=== PATIENT | male | born 1965 | race Caucasian/White ===

== ENCOUNTER → 2016-11-16 | Outpatient (CLI) | payer BC, OTHER ==
[~2016-11-16] VITALS: Ht 175.3 cm; Wt 105.6 kg
[~2016-11-16] MED LIST: ALLOPURINOL 30300 M2 PO; CIALIS20 MG PO; CLONIDINE0.1 PO; HYDROCODONE-AP1 EA11 PO; HYDROCODONE-APA1 TA1 PO; LIDODERM 5%1 PATCH TOP; LISINOPRIL20 MG PO; NORCO 5-325 TA1 EACH PO; NUCYNTA100 MG PO
--- NOTE | ~2016-11-16 | HPC ---
[facility] [address] [place] [address] PAIN MANAGEMENT CONSULTATION Name: KESHA GRUBBS Abimbola [facility] #: [facility] [id number] Admission: 11/16/16 Attend Phys: Sumit Quevedo DO Discharge: Date of : 69 Report #: [id number] THIS REPORT FOR: //name// CC: Kesha Quevedo DATE OF SERVICE: 11/16/2016 CHIEF COMPLAINT: Neck pain, left upper extremity pain with paresthesias. HISTORY OF PRESENT ILLNESS: As you know, the patient is a 51-year-old male, returning in followup visit requesting refills of medications. He feels medications are working beneficially. He is in the process of possibly changing careers and at this time wishes to make no changes in his therapy. Once he begins his new potential occupation, he is considering more aggressive treatment such as epidural injections, even surgical options. At present, he feels the medications are providing analgesic benefit enough that he is able to continue his current position. He wishes the medications to be refilled for 3 months. ALLERGIES: No known drug allergies. CURRENT MEDICATIONS: Nucynta 100 mg twice a day, hydrocodone 7.5/325 one tab every 4-1/2 hours p.r.n. for pain, Cialis 20 mg as needed, lisinopril 20 mg twice a day, clonidine 0.1 mg twice a day. SOCIAL HISTORY: The patient denies current tobacco use. Denies IV or illicit drug use. 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 He is unaccompanied today. IMAGING: No new imaging available. PHYSICAL EXAMINATION: VITAL SIGNS: Blood pressure 145/91, pulse 85, respiratory rate 16, unlabored. The patient is 98% on room air. Height 5 feet 9 inches tall, weight 232.8 pounds, BMI calculated 34.4. GENERAL: Well-developed, well-nourished, well-hydrated 51-year-old male, appearing stated age. Pain is rated around 2/10. HEENT: Normocephalic, atraumatic. Pupils are equal, round, reactive to light. EXTREMITIES: Show no clubbing, no cyanosis, no edema. MUSCULOSKELETAL: Upper extremity strength equal and symmetrical 5/5. There is some pain generated with shoulder abduction on the left when compared to the right. Spurling's test positive left, negative right. Muscle bulk and tone equal and symmetrical in upper extremities. ASSESSMENT: 1. Cervical radiculopathy. [address] [address] PAIN MANAGEMENT CONSULTATION Name: KESHA GRUBBS Room #: REG [facility]#: [id number] Admission: 11/16/16 Attend Phys: Sumit Quevedo DO Discharge: Date of : 69 Report #: [id number] 2. Cervical spondylosis with radiculopathy. 3. Neural foraminal stenosis. 4. Chronic intractable pain. PLAN: 1. The patient has returned today in followup visit requesting refills of medications. He feels medications are working beneficially for pain control. The patient has been appropriate with use of medications and he has been on time with requesting refills. He has not called for adjustments in his medications. Overall, the patient states he is doing very well, wishing to continue the medication as he continues to work at the current position. He is considering options of changing his medication or even becoming more aggressive with treatment depending on his work levels. At present, he feels he is doing very well and wishes refills of the medication for 3 months. 2. The patient was provided prescription of Nucynta 100 mg dose 1 tab p.o. b.i.d., #60, releases of today, 4 weeks from today, 8 weeks from today, 3 months' worth of medication. 3. The patient was provided a prescription of [place] 7.5/325 one tab every 4-1/2 hours p.r.n. for pain, given #150, releases of today, 4 weeks from today, 8 weeks from today. 4. The patient will return to our clinic in 3 months or earlier if interventional treatments are requested. We reviewed the fact that opiate medications are being used to provide analgesia adequate to support activities of daily living, not attempting to achieve a specific pain score on the 0-10 Visual Analog Scale. The current opiate medications are providing sufficient analgesia to allow the patient to participate in activities of daily living. The patient is not exhibiting any aberrant behavior suggestive of drug diversion. The patient is not having any adverse reactions to medications. The patient is not suffering from daytime somnolence or mental acuity changes. The patient is managing opiate-induced constipation with appropriate hqjr-htu-[id number] agents and dietary considerations. The patient was counseled on concern for caution with operating a motor vehicle while using opiate medications. A physical exam was performed and the patient's functional status was evaluated. All patients with back pain were advised against the bed rest greater than 4 days and were advised to return to normal activities. Pain score assessment was noted and the treatment plan was reviewed with the patient. All current medications, both prescribed and OTC were reviewed and reconciled on the electronic medical record. Tobacco screening was accomplished and smoking cessation was advised when indicated. BMI was noted and diet/exercise modification was recommended for all patients following outside normal parameters. I reviewed with the patient today their responsibilities to safeguard [facility] [address] [place] [address] PAIN MANAGEMENT CONSULTATION Name: KESHA GRUBBS Abimbola Room #: REG [facility]#: [id number] Admission: 11/16/16 Attend Phys: Sumit Quevedo DO Discharge: Date of : 69 Report #: [id number] prescription medications, reviewed their responsibility to utilize medications only as prescribed by the physician. They are to seek and receive pain medications only from 1 physician group ( [facility]). They are to use 1 pharmacy and keep the clinic informed if they change pharmacies. Their responsibilities include making followup visits in a timely fashion and to avoid abrupt discontinuation of medication usage. Their responsibilities further include bringing their medications (bottles from the pharmacy with residual pills) to the visit for possible confirmation of pill counts and the patient understands it is their responsibility to submit to random drug screens to ensure both that the medications prescribed are present, and that no other controlled substances are present. All prescriptions provided today were generated electronically. <ELECTRONICALLY SIGNED> By: Sumit Quevedo DO 11/29/16 0808 0723 [id number] uSmit Quevedo DO /nt
[2016-11-16 13:08] VITALS: BP 145/91
== END | disposition home or self-care (01) ==
LOC: PAIN 07:16
DX: M47.22 Other spondylosis with radiculopathy, cervical region (principal); M48.02 Spinal stenosis, cervical region; G89.29 Other chronic pain; F17.200 Nicotine dependence, unspecified, uncomplicated

== ENCOUNTER → 2017-03-15 | Outpatient (CLI) | payer BC, OTHER ==
[~2017-03-15] VITALS: Ht 175.3 cm; Wt 105.5 kg
--- NOTE | ~2017-03-15 | HPC ---
[facility] [address] [place] [address] PAIN MANAGEMENT CONSULTATION Name: KESHA GRUBBS Room #: REG [facility].#: [id number] Admission: 03/15/17 Attend Phys: Sumit Quevedo DO Discharge: Date of : 69 Report #: [id number] THIS REPORT FOR: //name// CC: Kesha Quevedo DATE OF SERVICE: 03/15/2017 REFERRING PHYSICIAN: Kesha Mcconnell MD CHIEF COMPLAINT: Neck pain, left upper extremity pain and paresthesias. HISTORY OF PRESENT ILLNESS: As you know, the patient is a 51-year-old male, returning in followup visit for medication management. He feels medications are working beneficially. He continues to experience neck pain, left upper extremity pain for which he places pain score 2/10. He states stress, looking up, looking down, sitting for any length of time appears to exacerbate symptoms. He has also noted increasing neuropathic symptoms upon arising in the morning after sleep. Medications, repositioning appears to improve pain. He has returned today in followup visit requesting medication management and possible addition of neuropathic medications for evening hours. ALLERGIES: No known drug allergies. CURRENT MEDICATIONS: Nucynta 100 mg b.i.d., hydrocodone 7.5/325 one tab p.o. q. 4-1/2 hours p.r.n. for pain, Cialis 20 mg p.r.n., lisinopril 20 mg twice a day, clonidine 0.1 mg twice a day. SOCIAL HISTORY: The patient denies current tobacco use. Denies IV or illicit drug use. 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 IMAGING: No new imaging available. PHYSICAL EXAMINATION: VITAL SIGNS: Blood pressure 114/84, pulse 81, respiratory rate 14, unlabored. The patient is 95% on room air, current height is 5 feet 9 inches tall, weight 232.6 pounds, BMI calculated 34.3. GENERAL: Well-developed, well-nourished, well-hydrated 51-year-old male appearing his stated age. Pain is rated at 2/10. HEENT: Normocephalic, atraumatic. Pupils equal, round, reactive to light. Speech is fluent. EXTREMITIES: Show no clubbing, no cyanosis, no edema. MUSCULOSKELETAL: Upper extremity strength equal and symmetrical 5/5, intact to light touch from C1 through T1 dermatomes. Spurling's test positive left, [address] [address] PAIN MANAGEMENT CONSULTATION Name: KESHA GRUBBS Room #: REG [facility]#: [id number] Admission: 03/15/17 Attend Phys: Sumit Quevedo DO Discharge: Date of : 69 Report #: [id number] negative right. ASSESSMENT: 1. Cervical radiculopathy. 2. Cervical spondylosis with radicular symptoms. 3. Neural foraminal stenosis of the cervical spine. 4. Chronic intractable pain. PLAN: 1. The patient returns today in followup visit requesting refill on medications. He does indicate today he has been having some difficulty with arising in the morning hours with neuropathic symptoms involving the left upper extremity greater than right, but numbness and tingling will last for at least a half hour to 45 minutes. He wishes to discuss possible changes in medication therapy. 2. The patient will be started on Lyrica to address this neuropathic symptom. We will start the patient on 75 mg dose at night, continue this for 7 nights, if no improvement in the neuropathic symptoms then increase to 150 mg dose. I have given him samples of Lyrica today. He will trial the samples, if they are effective, he will contact our clinic and we will provide a full prescription to his local pharmacy. He was given samples of Lyrica today to initiate this titration, he is to watch for side effects such as somnolence, decrease in mental acuity, disorientation and confusion. He notes any side effects, contact our clinic. 3. The patient will be continued on Nucynta 100 mg dose 1 tab p.o. b.i.d., I have given the patient #60, releases of today, 4 weeks from today, 8 weeks from today as this is working beneficially for pain control in the daytime hours. He was given this medication to continue therapy. 4. The patient was provided a prescription of hydrocodone 7.5/325 one tab p.o. q. 4-1/2 hours p.r.n. for pain, I have given the patient #150, releases of today, 4 weeks from today, 8 weeks from today, 3 months' worth of medication. I have advised the patient to take this medication as directed. He is not to take more than 5 tablets per day. He is only to take the medication when his pain is intolerable, not to rely on the medication prophylactically. 5. We will see the patient back in followup visit 3 months from today or earlier if he wishes to undergo interventional treatment such as cervical epidural injection or to receive referrals to neurosurgery. We will also discuss with the patient the Lyrica if it is effective he can contact our clinic and we will call up prescription into his local pharmacy. <ELECTRONICALLY SIGNED> By: Sumit Quevedo DO 03/16/17 0937 [id number] Sumit Quevedo DO /jada
[2017-03-15 08:15] VITALS: BP 114/84
== END ==
LOC: PAIN 06:52
DX: M47.12 Other spondylosis with myelopathy, cervical region (principal); M48.02 Spinal stenosis, cervical region; G89.29 Other chronic pain; I10 Essential (primary) hypertension; F17.210 Nicotine dependence, cigarettes, uncomplicated

== ENCOUNTER → 2017-06-29 | Outpatient (CLI) | payer BC, OTHER ==
[~2017-06-29] VITALS: Ht 175.3 cm; Wt 105.1 kg
[~2017-06-29] MED LIST changes: +LYRICA 75 MG CA75 MG PO
--- NOTE | ~2017-06-29 | HPC ---
[facility] [place] [address] PAIN MANAGEMENT CONSULTATION Name: KESHA GRUBBS [facility] [id number] Admission: 06/29/17 Attend Phys: Sumit Quevedo DO Discharge: Date of : 69 Report #: [id number] THIS REPORT FOR: //name// CC: KESHA Quevedo DATE OF SERVICE: 06/29/2017 CHIEF COMPLAINT: Neck pain, left upper extremity pain and paresthesias. HISTORY OF PRESENT ILLNESS: As you know, the patient is a 52-year-old male, returning in followup visit with ongoing neck pain, left upper extremity pain with paresthesias. As you are aware, the patient suffers from cervical radiculopathy secondary to the displacement of a cervical intervertebral disk and cervical spondylosis leading to foraminal stenosis. The patient continues to experience pain at a level of 2/10. We initiated the Lyrica therapy at last visit and this improved the patient's symptoms significantly. He has returned today in followup visit for medication management. He does need to adjust the timing of his Lyrica to decrease the side effects of somnolence, decreased mental acuity, disorientation he reported in the daytime hours. He returns today with no new injury, no new trauma; for refill of medications. ALLERGIES: No known drug allergies. CURRENT MEDICATIONS: Nucynta 100 mg b.i.d., hydrocodone 7.5/325 one tab every 4-1/2 hours p.r.n. for pain, Cialis 20 mg p.r.n., lisinopril 20 mg twice a day, clonidine 0.1 mg twice a day. SOCIAL HISTORY: The patient denies current tobacco use. Denies IV or illicit drug use. He denies alcohol use. 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 IMAGING: No new imaging available. PHYSICAL EXAMINATION: VITAL SIGNS: Blood pressure 153/104, pulse 76, respiratory rate 20 unlabored. The patient is 98% on room air. Height 5 feet 9 inches tall, weight 231.8 pounds, BMI calculated 34.2. GENERAL: Well-developed, well-nourished, well-hydrated exogenously obese 52-year-old male. He appears his stated age, placing current pain score at 2/10. HEENT: Normocephalic, atraumatic. Pupils equal, round, reactive to light. Extraocular muscles are intact. Speech fluent. EXTREMITIES: Show no clubbing, no cyanosis, no edema. MUSCULOSKELETAL: Upper extremity strength appears equal and symmetrical again [address] [address] PAIN MANAGEMENT CONSULTATION Name: KESHA GRUBBS Abimbola Room #: REG [facility]#: [id number] Admission: 06/29/17 Attend Phys: Sumit Quevedo DO Discharge: Date of : 69 Report #: [id number] today 5/5, intact to light touch from C1 through T1 dermatomes. Spurling's test positive left, negative right. Muscle bulk and tone equal and symmetrical in upper extremities. There is mild restriction of motion of the cervical spine, leftward lateral flexion intensifies neck pain. ASSESSMENT: 1. Cervical radiculopathy. 2. Cervical spondylosis with radicular symptoms. 3. Neural foraminal stenosis of the cervical spine. 4. Chronic intractable pain. 5. Essential hypertension. PLAN: 1. The patient has returned today in followup visit for medication management. The patient feels medications are working beneficially for pain control. He is having no side effects to medication at this time and he does feel that they are beneficial. He states he has return to work of late and has noted that the medications have been quite beneficial in helping pain control. He is having some side effects with the Lyrica and indicates sensation of hangover sensation in the morning hours and needs to make adjustments in this therapy. 2. The patient was provided a prescription of Lyrica 75 mg dose 2 tabs p.o. at bedtime. I have recommended the patient to take the medication at night, he should take it approximately 3 hours before bedtime, this would reduce the "hangover effects" that the patient experiences on a daily basis. This will allow the patient to continue this neuropathic pain medication and decrease the potential side effects. He was provided a refill prescription of Lyrica today 75 mg 2 tabs p.o. at bedtime, #60, two refills. 3. The patient was provided a prescription of hydrocodone/acetaminophen 7.5/325 one tab every 4-1/2 hours p.r.n. for pain, I have given the patient #150, releases of today, 4 weeks from today, 8 weeks from today. I did advise the patient that we will need to be reducing this medication at our next visit to comply with CDC guidelines of 90 morphine equivalents per day. 4. The patient was provided a prescription of Nucynta ER 100 mg dose, 1 tab p.o. b.i.d., I have given the patient #60, releases of today, 4 weeks from today, 8 weeks from today, 3 months' worth of medication. This will be the medication we rely on for baseline pain control. This will remain as our main treatment option, this in conjunction with the Lyrica indicated above. We will begin weaning the hydrocodone as quickly as possible. 5. The patient's blood pressure was noted to be elevated today, pressure today at our clinic was 153/104. At previous evaluation, the patient's blood pressure was 114/84. I strongly suggest the patient return to see his PCP in regards to adjustments in his antihypertensive medications. The patient indicates he understands and will make an appointment with his PCP to adjust his medications further. [address] [address] PAIN MANAGEMENT CONSULTATION Name: ROMIEKESHA Abimbola [facility]: [facility] [id number] Admission: 06/29/17 Attend Phys: Sumit Quevedo DO Discharge: Date of : 69 Report #: [id number] 6. We will see the patient back in followup visit 3 months from today for medication management. By: 0928 [id number] Sumit Quevedo DO /jada
[2017-06-29 08:22] VITALS: BP 153/104
== END | disposition home or self-care (01) ==
LOC: PAIN 07:19
DX: Z76.0 Encounter for issue of repeat prescription (principal); M47.22 Other spondylosis with radiculopathy, cervical region; M48.02 Spinal stenosis, cervical region; G89.29 Other chronic pain; I10 Essential (primary) hypertension; F17.200 Nicotine dependence, unspecified, uncomplicated; Z79.899 Other long term (current) drug therapy

== ENCOUNTER → 2017-11-25 | Outpatient (CLI) | payer BC, OTHER ==
[~2017-11-25] VITALS: Ht 175.3 cm; Wt 99.5 kg
[~2017-11-25] MED LIST changes: +NORCO 7.5-3251 EACH PO; +STOOL SOFTENER100 MG PO
--- NOTE | ~2017-11-25 | HPC ---
[facility] [address] [place] [address] PAIN MANAGEMENT CONSULTATION Name: KESHA GRUBBS Abimbola Room #: REG [facility]#: [id number] Admission: 11/25/17 Attend Phys: Sonido Quevedo DO Discharge: Date of : 69 Report #: [id number] THIS REPORT FOR: //name// CC: Kesha Quevedo The patient is a 52-year-old gentleman, last seen 06/29/[address] Sumit Quevedo, being treated for cervical radiculopathy, cervical spondylosis, requiring high risk complex medication management. Returns to pain clinic today noting pain continues in neck and left upper extremity. He rates his pain a 2 on VAS. He works at [employer], fairly physical job. Takes hydrocodone 4 a day along with Nucynta 150 mg at bedtime. Pain is primarily neck, right arm, and knee. Notes pain is exacerbated with cervical range of motion, specifically looking up. Physical and emotional stress exacerbates pain as well. He gets relief with repositioning and medication and "distraction." PHYSICAL EXAMINATION: Shows 52-year-old gentleman, BMI is 30.2 kilograms per meter squared. Blood pressure 125/94, pulse 76, respirations 16. Cervical range of motion is full. Upper extremity strength is preserved. The patient is actually fairly robust 5/5 to all muscle groups tested in the upper extremity. Gait is tandem. Lower extremity strength is preserved. We reviewed the fact that opiate medications are being used to provide analgesia adequate to support activities of daily living, not attempting to achieve a specific pain score on the 0-10 Visual Analog Scale. The current opiate medications are providing sufficient analgesia to allow the patient to participate in activities of daily living. The patient is not exhibiting any aberrant behavior suggestive of drug diversion. The patient is not having any adverse reactions to medications. The patient is not suffering from daytime somnolence or mental acuity changes. The patient is managing opiate-induced constipation with appropriate [id number] agents and dietary considerations. The patient was counseled on concern for caution with operating a motor vehicle while using opiate medications. A physical exam was performed and the patient's functional status was evaluated. All patients with back pain were advised against the bed rest greater than 4 days and were advised to return to normal activities. Pain score assessment was noted and the treatment plan was reviewed with the patient. All current medications, both prescribed and OTC were reviewed and reconciled on the electronic medical record. Tobacco screening was accomplished and smoking cessation was advised when indicated. BMI was noted and diet/exercise modification was recommended for all patients following outside normal parameters. I reviewed with the patient today their responsibilities to safeguard prescription medications, reviewed their responsibility to utilize medications only as prescribed by the physician. They are to seek and receive pain [address] [address] PAIN MANAGEMENT CONSULTATION Name: KESHA GRUBBS Abimbola Room #: REG [facility]#: [id number] Admission: 11/25/17 Attend Phys: Sonido Quevedo DO Discharge: Date of : 69 Report #: [id number] medications only from 1 physician group ( [facility]). They are to use 1 pharmacy and keep the clinic informed if they change pharmacies. Their responsibilities include making followup visits in a timely fashion and to avoid abrupt discontinuation of medication usage. Their responsibilities further include bringing their medications (bottles from the pharmacy with residual pills) to the visit for possible confirmation of pill counts and the patient understands it is their responsibility to submit to random drug screens to ensure both that the medications prescribed are present, and that no other controlled substances are present. All prescriptions provided today were generated electronically. ASSESSMENT: Symptomatic lumbar radiculopathy, component of axial back pain, cervical radiculopathy by history requiring high risk complex medication management. RECOMMENDATIONS: We will check buccal drug swab today, no aberrant behavior suggestive of drug diversion, simply complying with opiate consent to treat contract. The patient has been treated in our clinic with opiate analgesics since 07/2015. We will continue current medication unchanged, hydrocodone 7.5/325 one tablet 4-5 times a day, limit 150 tablets for 30 days and Nucynta 150 mg b.i.d. and Lyrica 75 mg b.i.d. Discharged in good and stable condition after prolonged visit was spent reviewing therapeutic options, discussing risks, benefits of opiate analgesics for chronic pain, reviewing opiate consent to treat contract and obtaining buccal swab. Greater than 50% of time spent counseling the patient. <ELECTRONICALLY SIGNED> By: Sonido Quevedo DO 11/28/17 0715 1209 [id number] Sonido Quevedo DO /nt
[2017-11-25 12:08] VITALS: BP 125/94
== END ==
LOC: PAIN 07:04
DX: M54.12 Radiculopathy, cervical region (principal); M47.892 Other spondylosis, cervical region; M54.9 Dorsalgia, unspecified; Z79.899 Other long term (current) drug therapy

== ENCOUNTER → 2018-03-29 | Outpatient (CLI) | payer BC, OTHER ==
[~2018-03-29] VITALS: Ht 175.3 cm; Wt 102.5 kg
--- NOTE | ~2018-03-29 | HPC ---
[facility] [address] [place] [address] PAIN MANAGEMENT CONSULTATION Name: KESHA GRUBBS Room #: [facility]#: [id number] Admission: 03/29/18 Attend Phys: Sumit Quevedo DO Discharge: Date of : 69 Report #: [id number] THIS REPORT FOR: //name// CC: Kesha Quevedo DATE OF SERVICE: 03/29/2018 REFERRING PHYSICIAN: Kesha Mcconnell MD CHIEF COMPLAINT: Neck pain, left upper extremity pain and paresthesias. HISTORY OF PRESENT ILLNESS: As you know, the patient is a 53-year-old male who returns today in followup visit with ongoing neck pain and left upper extremity pain and paresthesias. The patient states he has been diagnosed with cervical radiculopathy, cervical spondylosis with radicular symptoms and neural foraminal stenosis contributing to ongoing pain issues. The patient has returned today in followup visit requesting continuation of medication management for ongoing chronic neck pain and left upper extremity pain. The patient states pain is exacerbated with forward flexion of the cervical spine as well as lateral flexion and rotation of the cervical region. He continues to experience pain on a daily basis. He returns today requesting refill on medications. He indicates the pain medications are working beneficially despite the pain level reported at 2/10 today. Overall, the patient states he is doing better with medication management than he had with any other treatment to date. He returns for continuation of therapy if at all possible. ALLERGIES: No known drug allergies. CURRENT MEDICATIONS: Nucynta 100 mg twice a day, hydrocodone 7.5/325 one tab every 4-1/2 hours p.r.n. for pain, Cialis 20 mg per day, lisinopril 20 mg twice a day, clonidine 0.1 mg twice a day. SOCIAL HISTORY: The patient denies tobacco, denies IV or illicit drug use. Denies any chronic alcohol use. 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 He is working, not receiving workmen's compensation, unaccompanied today. IMAGING: No new imaging available. PHYSICAL EXAMINATION: VITAL SIGNS: Blood pressure 116/82, pulse 89, respiratory rate 18, unlabored. The patient is 98% on room air. Height 5 feet 9 inches tall, weight 226 pounds, BMI calculated 33.4. GENERAL: Well-developed, well-nourished, well-hydrated 53-year-old male, appearing stated age, placing current pain score 2/10. [place] [address] PAIN MANAGEMENT CONSULTATION Name: KESHA GRUBBS Room #: [facility]#: [id number] Admission: 03/29/18 Attend Phys: Sumit Quevedo DO Discharge: Date of : 69 Report #: [id number] HEENT: Normocephalic, atraumatic. Pupils equal, round, reactive to light. EXTREMITIES: Show no clubbing, no cyanosis, no edema. MUSCULOSKELETAL: Upper extremity strength appears equal and symmetrical at 5/5. He is intact to light touch from C5-T1 dermatomes. Spurling's test positive. ASSESSMENT: 1. Cervical radiculopathy. 2. Cervical spondylosis with radiculopathy. 3. Neural foraminal stenosis of the cervical spine. 4. Chronic intractable pain. PLAN: 1. The patient returns today in followup visit for medication management. We have reviewed the patient's drug screen from the visit of 11/28/2017. It shows appropriate findings of hydrocodone, pregabalin, all medications the patient should be on. Unfortunately, it does show the patient is a smoker, though he has denied this to us in the past. We have discussed this with the patient today and recommend strongly he look towards smoking cessation programs as smoking has been directly linked to chronic pain exacerbation and we recommend he look towards either medically managing his addiction to tobacco or discuss cognitive behavioral therapy. 2. The patient and I did discuss continuation of medication therapy. I did discuss the CDC's guidelines of reducing doses of opioids to less than 90 morphine equivalents. The patient is currently over that dosing level, but has been on this medication for a while. He has shown no side effects to the therapy. We will continue the medication at this time with the understanding that there is a strong possibility reduction in medication will be necessary in the very near future. 3. The patient was provided prescription of Nucynta 100 mg dose 1 tab p.o. b.i.d., #60, releases of today, 4 weeks from today, 8 weeks from today. 4. The patient was provided prescription of hydrocodone 7.5/325 one tab every 4-1/2 hours p.r.n. for pain, #150, releases of today, 4 weeks from today, 8 weeks from today. 5. The patient was provided prescription of Lyrica 75 mg dose 1 tab p.o. b.i.d., #60, two refills. 6. The patient will return to our clinic in 3 months for ongoing medical therapy, earlier if adjustments need to be made in his medical management due to CDC guidelines. <ELECTRONICALLY SIGNED> By: Sumit Quevedo DO 04/04/18 [id number] Sumit Quevedo DO /nt
[2018-03-29 08:08] VITALS: BP 116/82
== END ==
LOC: PAIN 06:38
DX: M47.22 Other spondylosis with radiculopathy, cervical region (principal); M48.02 Spinal stenosis, cervical region; G89.4 Chronic pain syndrome